=== PATIENT | male | born 1940 | race Caucasian/White ===

== ENCOUNTER → 2023-07-13 | Outpatient (CLI) | payer MEDICARE, BC | LOC: M RAD 08:36 | PROVIDERS: ATTEND Internal Medicine Nephrology | DX: I70.1 Atherosclerosis of renal artery (principal); N18.31 Chronic kidney disease, stage 3a ==

== ENCOUNTER → 2024-03-22 | Outpatient (REF) | payer MEDICARE, BC ==
[~2024-03-22] MED LIST: AMLO1TAB25 PO; ASPI81TA26 PO; FERR325T3 PO; FLAX1CAP5 PO; FLOM0.4C39 PO; FURO40TA2 PO; HUMU1INJ2 SC; HYDR-161 PO; LANTINJ4 SC; LOSA50TA28 PO; NOXI1TAB PO; OMEP40CA4 PO
[2024-03-22 17:47] LABS: PERCENT SATURATION 10.1 % (19.7-50.0)
== END ==
LOC: M LAB REF 16:53
PROVIDERS: ATTEND Internal Medicine Nephrology
DX: D50.9 Iron deficiency anemia, unspecified (principal)

== ENCOUNTER 2024-04-19 12:51 | Outpatient (CLI) | payer MEDICARE, BC ==
[~2024-04-19] VITALS: Ht 172.7 cm; Wt 89.0 kg
[~2024-04-19 12:51] MED LIST changes: +ALBUTEROL SULFATE 2.5MG/0.5ML INH NEB SOLN INH PRN; +EPINEPHrine INJ 1 MG/ML 1ML AMP IM PRN; +diphenhydrAMINE 50MG/ML VIAL IV PRN; +methylPREDNISolone 125MG 2ML VIAL IV PRN
[2024-04-19 13:00] VITALS: BP 168/70; O2SAT 96
[2024-04-19] MEDS: FERRIC CARBOXYMALTOSE INJ 750 MG in NS 250 ML (>50kg) IV ONE (13:14)
[2024-04-19] MEDS ORDERED: MAGN400C2 PO (13:27)
[2024-04-19] MEDS ORDERED: CALC1CAP31 PO (13:27)
[2024-04-19] MEDS ORDERED: NS 1,000 ML IV SCH (14:30)
[2024-04-19 14:50] VITALS: BP 168/74; O2SAT 97
== END 2024-04-19 14:50 | disposition home or self-care (01) ==
LOC: M INFU 12:51
PROVIDERS: ATTEND Internal Medicine Nephrology
DX: D50.9 Iron deficiency anemia, unspecified (principal)
CPT/HCPCS: 96365; J1439

== ENCOUNTER 2024-04-26 13:17 | Outpatient (CLI) | payer MEDICARE, BC ==
[~2024-04-26] VITALS: Ht 172.7 cm; Wt 88.0 kg
[~2024-04-26 13:17] MED LIST changes: +CALC1CAP31 PO; +MAGN400C2 PO
[2024-04-26 13:40] VITALS: BP 157/72; O2SAT 98
[2024-04-26] MEDS: FERRIC CARBOXYMALTOSE INJ 750 MG in NS 250 ML (>50kg) IV ONE (13:55)
[2024-04-26] MEDS ORDERED: NS 1,000 ML IV SCH (14:00)
[2024-04-26 15:08] VITALS: BP 161/77; O2SAT 97
== END 2024-04-26 15:10 ==
LOC: M INFU 13:17
PROVIDERS: ATTEND Internal Medicine Nephrology
DX: D50.9 Iron deficiency anemia, unspecified (principal)
CPT/HCPCS: 96365; J1439

== ENCOUNTER 2025-05-19 07:57 | Outpatient (CLI) | payer MEDICARE, BC ==
[~2025-05-19] VITALS: Ht 172.7 cm; Wt 84.0 kg
[~2025-05-19 07:57] MED LIST changes: +ALBUTEROL SULFATE 2.5 MG/0.5 ML INH CONCENTRATE NEB SOLN INH PRN; -ALBUTEROL SULFATE 2.5MG/0.5ML INH NEB SOLN INH PRN; -FLOM0.4C39 PO; +NS (Normal Saline) 0.9% 1,000 ML IV SCH; +TAMS-18 PO; +diphenhydrAMINE 50 MG/ML VIAL IV PRN; -diphenhydrAMINE 50MG/ML VIAL IV PRN; +methylPREDNISolone 125 MG/2 ML VIAL IV PRN; -methylPREDNISolone 125MG 2ML VIAL IV PRN
[2025-05-19 08:20] VITALS: BP 163/78; O2SAT 97
[2025-05-19] MEDS: IRON SUCROSE 400 MG in NS 250 ML OVER 2.5 HRS IV ONE (08:57)
[2025-05-19 11:30] VITALS: BP 159/86; O2SAT 99
== END 2025-05-19 11:50 | disposition home or self-care (01) ==
LOC: M INFU 07:57
PROVIDERS: ATTEND Internal Medicine Nephrology
DX: D50.9 Iron deficiency anemia, unspecified (principal)
CPT/HCPCS: 96365; 96366; J1756

== ENCOUNTER 2025-06-03 07:08 | Outpatient (CLI) | payer MEDICARE, BC ==
[~2025-06-03] VITALS: Ht 172.7 cm; Wt 84.5 kg
[~2025-06-03 07:08] MED LIST changes: -NS (Normal Saline) 0.9% 1,000 ML IV SCH; -methylPREDNISolone 125 MG/2 ML VIAL IV PRN
[2025-06-03] MEDS ORDERED: NS (Normal Saline) 0.9% 1,000 ML IV SCH (07:30)
[2025-06-03 07:40] VITALS: BP 156/70; O2SAT 97
[2025-06-03] MEDS: IRON SUCROSE 400 MG in NS 250 ML OVER 2.5 HRS IV ONE (07:56)
[2025-06-03 09:00] VITALS: BP 148/83; O2SAT 97
[2025-06-03 10:35] VITALS: BP 150/90; O2SAT 98
== END 2025-06-03 10:30 ==
LOC: M INFU 07:08
PROVIDERS: ATTEND Internal Medicine Nephrology
DX: D50.9 Iron deficiency anemia, unspecified (principal)
CPT/HCPCS: 96365; 96366; J1756

== ENCOUNTER 2025-09-30 08:46 | Outpatient (CLI) | payer MEDICARE, BC ==
[~2025-09-30] VITALS: Ht 172.7 cm; Wt 86.4 kg
[~2025-09-30 08:46] MED LIST changes: +NS (Normal Saline) 0.9% 1,000 ML IV SCH
[2025-09-30 09:10] VITALS: BP 120/56; O2SAT 98
[2025-09-30] MEDS: IRON SUCROSE 400 MG in NS 250 ML IV ONE (09:30)
[2025-09-30 10:30] VITALS: BP 142/66; O2SAT 96
[2025-09-30 12:13] VITALS: BP 167/74; O2SAT 100
== END 2025-09-30 12:15 | disposition home or self-care (01) ==
LOC: M INFU 08:46
PROVIDERS: ATTEND Internal Medicine Nephrology
DX: D64.9 Anemia, unspecified (principal); N18.9 Chronic kidney disease, unspecified
CPT/HCPCS: 96365; 96366; J1756

== ENCOUNTER → 2025-10-27 | Outpatient (REF) | payer MEDICARE, BC ==
[~2025-10-27] MED LIST changes: -ALBUTEROL SULFATE 2.5 MG/0.5 ML INH CONCENTRATE NEB SOLN INH PRN; -EPINEPHrine INJ 1 MG/ML 1ML AMP IM PRN; -NS (Normal Saline) 0.9% 1,000 ML IV SCH; -diphenhydrAMINE 50 MG/ML VIAL IV PRN
[2025-10-27 18:39] LABS: IRON (FE) 67.0 UG/DL (65-175)
[2025-10-27 18:40] LABS: PERCENT SATURATION 23.4 % (19.7-50.0)
== END ==
LOC: M LAB REF 17:18
PROVIDERS: ATTEND Internal Medicine Nephrology
DX: D50.9 Iron deficiency anemia, unspecified (principal)